=== PATIENT | male | born 1935 | race Caucasian/White ===

== ENCOUNTER 2019-03-06 05:46 | Day surgery (SDC) | payer MEDICARE, BC ==
[2019-03-06] MEDS ORDERED: Midazolam 1 MG/ML 2 ML SDV IV ONE ×6 (05:47→07:35)
[2019-03-06] MEDS ORDERED: fentaNYL 100 MCG/2 ML SDV IV ONE ×3 (05:47→07:13)
[2019-03-06] MEDS ORDERED: Sodium Chloride 0.9% 10 ML Syringe FLUSH PRN (06:00)
[2019-03-06] MEDS ORDERED: Dextrose 5%-0.45% NaCl 1,000 ML IV SCH (06:00)
[2019-03-06] MEDS ORDERED: fentaNYL 100 MCG/2 ML SDV ONE (06:16)
[2019-03-06] MEDS ORDERED: Midazolam 1 MG/ML 2 ML SDV ONE (06:16)
--- NOTE | 2019-03-06 12:55 | OR ---
DATE: 03/06/2019 PROCEDURE PERFORMED: Total colonoscopy, narrowband imaging, and multiple cold snare polypectomies. INSTRUMENT USED: PCF-H190DL Olympus video colonoscope. PREMEDICATIONS: Fentanyl 100 mcg intravenous, Versed 3 mg intravenous. Nasal O2 cannula. The procedure was done under pulse oximetry, BP recording, and toe puncher. INDICATION: The patient with previous colonic tubular adenoma. Surveillance colonoscopic examination is done for detection of any polypoid lesions and removal, endoscopic hemostasis therapy if needed. DESCRIPTION OF PROCEDURE: Initial rectal exam was unremarkable. Rigid anoscopy was normal. The colonoscope was passed with ease. Numerous scattered wide- mouth diverticula were noted at the distal left colon along with significant deformity. The scope was passed up to the ileocecal area. Photographs were taken of the normal-appearing cecum, identified by double-bulged ileocecal folds. No bleeding was noted from any of the visualized areas at the commencement of the examination. The bowel preparation was found to be adequate, [place] scale 2 in all the regions. No stricture. No vascular ectasia. No large isolated ulcerations seen. No evidence of diffuse inflammatory bowel disease in the form of friability, contact bleeding, or ulcerations. Probing the proximal sides of folds and flexures using adequate distention and clearing up the stool material, withdrawal of the scope was made. In the mid transverse colon, 2 benign-appearing diminutive polyps were noted, NBI views were obtained, cold snare polypectomies were done, the tissues were retrieved and sent for histopathology. Photographs were taken of the polyps. No bleeding was noted from any of the visualized areas at the completion of the examination. IMPRESSION: 1. Diverticulosis. 2. Diminutive benign polyps. The patient tolerated the procedure well. [facility] /[id number]
== END 2019-03-06 09:53 | disposition home or self-care (01) ==
LOC: DL.ENDO 05:46
PROVIDERS: ATTEND Internal Medicine Gastroenterology
DX: Z12.11 Encounter for screening for malignant neoplasm of colon (principal); D12.3 Benign neoplasm of transverse colon; K57.30 Diverticulosis of large intestine without perforation or abscess without bleeding; Z86.010 Personal history of colon polyps; E78.00 Pure hypercholesterolemia, unspecified; J45.909 Unspecified asthma, uncomplicated; K21.9 Gastro-esophageal reflux disease without esophagitis; Z88.5 Allergy status to narcotic agent; Z87.891 Personal history of nicotine dependence; Z98.890 Other specified postprocedural states; Z79.899 Other long term (current) drug therapy
CPT/HCPCS: 45385; J2250; J3010; J7042

== ENCOUNTER 2020-09-15 09:31 | Emergency (ER) | payer MEDICARE, BC ==
[2020-09-15] MEDS ORDERED: Sodium Chloride 0.9% 10 ML Syringe FLUSH PRN (09:33)
[2020-09-15] MEDS ORDERED: Sodium Chloride 0.9% 1,000 ML IV ONE (09:40)
--- NOTE | 2020-09-15 10:06 | CR ---
PROCEDURE INFORMATION: Exam: XR Chest, 1 View Exam date and time: 09/15/2020 9:53 AM Age: 84 years old Clinical indication: Other: Syncope TECHNIQUE: Imaging protocol: XR of the chest Views: 1 view. COMPARISON: No relevant prior studies available. FINDINGS: Lungs: There is mild patchy atelectasis or infiltrate at the left base. The lungs are otherwise clear. Pleural space: Unremarkable. No pleural effusion. No pneumothorax. Heart/Mediastinum: Unremarkable. No cardiomegaly. Bones/joints: Degenerative changes involve the spine and shoulders. IMPRESSION: Mild patchy left basilar atelectasis or infiltrate.
[2020-09-15 10:09] LABS: PTT,PARTIAL THROMBOPLSTIN TIME 21.3 SEC (22.0-34.0)
[2020-09-15 10:20] LABS: ANION GAP 14.3 mEq/L (7-13); CHLORIDE,CL 104 mmol/L (98-107); SODIUM,NA 141 mmol/L (136-145)
[2020-09-15] MEDS ORDERED: Iopamidol 755 Mg/ML 100 ML Bottle IVPUSH ONE (10:50)
--- NOTE | 2020-09-15 12:04 | CT ---
PROCEDURE INFORMATION: Exam: CT Chest With Contrast; Diagnostic Exam date and time: 09/15/2020 11:26 AM Age: 84 years old Clinical indication: Other: Syncope elevated d-dimer; Patient HX: R/O pe; Additional info: Syncope, elev. D-dimer 803 TECHNIQUE: Imaging protocol: Diagnostic computed tomography of the chest with intravenous contrast. Radiation optimization: All CT scans at this facility use at least one of these dose optimization techniques: automated exposure control; mA and/or kV adjustment per patient size (includes targeted exams where dose is matched to clinical indication); or iterative reconstruction. Contrast material: ISOVUE 370; Contrast volume: 69 ml; Contrast route: INTRAVENOUS (IV); COMPARISON: CT Chest wo Cont 08/13/2020 1:30 PM FINDINGS: Lungs: Previously noted linear density along the right mainstem bronchus is no longer evident. Mild dependent atelectasis and scattered scarring is present bilaterally. There is again a calcified granuloma in the right lower lobe. A 4 mm right upper lobe nodule appears stable (image 7:24). Pleural space: Unremarkable. No pneumothorax. No pleural effusion. Heart: Coronary artery calcifications are again present. No significant pericardial effusion. The RV/LV ratio is less than 1. Pulmonary arteries: No pulmonary embolus is identified. Aorta: The thoracic aorta is nonaneurysmal. Atherosclerotic vascular calcifications are again present. Lymph nodes: There is new enlargement of a subcarinal lymph node, measuring 1.4 cm short axis. In AP window lymph node is also newly enlarged, measuring 1.1 cm short axis. Subcentimeter short axis lymph nodes are present elsewhere in the mediastinum and bilateral danny. Liver: The liver contains multiple small cysts. Kidneys and ureters: The partially included kidney contains cysts. Bones/joints: Degenerative changes again involve the spine. Soft tissues: Unremarkable. IMPRESSION: 1. No pulmonary embolus identified. 2. Mild mediastinal lymphadenopathy, new as compared with 08/13/20, nonspecific. Correlate clinically and follow-up. 3. Stable 4 mm right upper lobe nodule. For patients at low risk (minimal or absent history of smoking and of other known risk factors), no routine follow-up is indicated. For patients at high risk (history of smoking or of other known risk factors), consider optional CT Chest at 12 months. (Reference: Lakia) COMMENTS: Consistent with the [employer]'s Incidental Findings Committee white paper (J Am Pj Radiol 2018): Any incidental renal lesion less than 1 cm or classified as too small to characterize, or any incidental cystic renal lesion characterized as simple-appearing, is likely benign. No follow-up imaging is recommended for these lesions per consensus recommendations based on imaging criteria. REFERENCES: Lakia Murray et al. Guidelines for Management of Incidental Pulmonary Nodules Detected on CT Images: From the [employer] Society 2017. Radiology. 2017;284(1):228-243.
[2020-09-15] MEDS ORDERED: Albuterol/Ipratropium 3.0-0.5 MG/3 ML Neb Soln NEB ONE (12:09)
--- NOTE | 2020-09-15 12:39 | EDM.PDOC ---
"Scribed by Rosa Angulo 09/15/20 0949 for Good Kolb MD ED HPI GENERAL MEDICAL PROBLEM - General Chief Complaint: Syncope Stated Complaint: CALLED IN Time Seen by Provider: 09/15/20 09:36 Source of Information: Reports: Patient, RN, RN Notes Reviewed History Limitations: Reports: No Limitations - History of Present Illness INITIAL COMMENTS - FREE TEXT/NARRATIVE: Pt presents to ER from [facility] by P[facility] with c/o near syncope. He states he did not have breakfast today because they have brunch after [facility] on Sundays. He was standing in [facility] and felt lightheaded, and had blurry vision so he sat down. He felt as if he might faint, so he sat down. Admits to shortness of breath. Admits to chronic sinus congestion and sore throat. Denies LOC, chest pain, SALAZAR, N/V/D, incontinence, difficulty with speech or swallowing, or motor weakness. Denies fever or cough. Onset: Today, Sudden Duration: Resolved Prior to Arrival Location: Reports: Generalized Quality: Reports: Other (Denies pain) Severity: Moderate Improves with: Reports: None Worsens with: Reports: None Associated Symptoms: Reports: No Other Symptoms - Related Data Allergies Allergy/AdvReac Type Severity Reaction Status Date / Time codeine Allergy Unknown Stomach Verified 09/15/20 10:46 Ache Home Meds: Home Meds Acetaminophen/Diphenhydramine [Acetaminophen Pm Gelcap] 1 each PO DAILY 11/03/13 [History] Fexofenadine [Maggy] 60 mg PO DAILY 11/03/13 [History] Omeprazole [Prilosec] 20 mg PO DAILY 11/03/13 [History] Tamsulosin [Tamsulosin 24 Hr] 0.4 mg PO BEDTIME 11/03/13 [History] Albuterol Sulfate [Albuterol Sulfate Hfa] 2 puff INH QID PRN 03/03/19 [History] Budesonide/Formoterol Fumarate [Symbicort 80-4.5 MCG] 2 puff INH BID 03/03/19 [History] Finasteride 5 mg PO DAILY 03/03/19 [History] Budesonide/Formoterol Fumarate [Symbicort 80-4.5 Mcg Inhaler] 2 puff INH BID 03/06/19 [History] Past Medical History HEENT History: Reports: Allergic Rhinitis, Cataract, Hard of Hearing, Sinusitis Cardiovascular History: Reports: None Respiratory History: Reports: Asthma, Sleep Apnea Other Respiratory History: Patient has sleep apnea, present while lying on his back Gastrointestinal History: Reports: Colon Polyp, GERD, Hemorrhoids, Other (See Below) Other Gastrointestinal History: Schatzki's ring Genitourinary History: Reports: None Musculoskeletal History: Reports: None Neurological History: Reports: None Psychiatric History: Reports: None Endocrine/Metabolic History: Reports: None Hematologic History: 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, Iron Deficiency Immunologic History: Reports: None Oncologic (Cancer) History: Reports: None Dermatologic History: Reports: None, Other (See Below) Other Dermatologic History: bruises easily - Infectious Disease History Infectious Disease History: Reports: Chicken Pox, Measles, Mumps - Past Surgical History Head Surgeries/Procedures: Reports: None HEENT Surgical History: Reports: Tonsillectomy Cardiovascular Surgical History: Reports: None Respiratory Surgical History: Reports: None GI Surgical History: Reports: Colonoscopy, EGD Male Surgical History: Reports: None Musculoskeletal Surgical History: Reports: Arthroscopic Knee, Knee Replacement Social & Family History - Family History Family Medical History: No Pertinent Family History - Caffeine Use Caffeine Use: Reports: Coffee Other Caffeine Use: 6 cups daily - Living Situation & Occupation Occupation: Retired ED ROS GENERAL - Review of Systems Review Of Systems: Comprehensive ROS is negative, except as noted in HPI. - Physical Exam Exam: See Below Exam Limited By: No Limitations General Appearance: Alert, WD/WN, No Apparent Distress Eye Exam: Bilateral Eye: EOMI, Normal Inspection, PERRL Ears: Normal External Exam, Hearing Loss (Chronic/stable) Nose: Normal Inspection, Normal Mucosa, No Blood Throat/Mouth: Normal Lips, Normal Teeth, Normal Gums, Normal Oropharynx, Normal Voice, No Airway Compromise, Other (Dry oral mucosa) Head Exam: Atraumatic, Normocephalic Neck: Normal Inspection, Supple, Non-Tender, Full Range of Motion Respiratory/Chest: No Respiratory Distress, Lungs Clear, Normal Breath Sounds, No Accessory Muscle Use, Chest Non-Tender Cardiovascular: Regular Rate, Rhythm, No Edema, Tachycardia GI/Abdominal: Normal Bowel Sounds, Soft, Non-Tender, No Organomegaly, No Distention, No Abnormal Bruit, No Mass Neuro Exam (Abbreviated): Alert, Oriented, CN II-XII Intact, Normal Cognition, No Motor/Sensory Deficits Back Exam: Normal Inspection Extremities: Normal Inspection, Normal Range of Motion, Non-Tender, No Pedal Edema, Normal Capillary Refill Psychiatric: Normal Affect, Normal Mood Skin Exam: Warm, Dry, Intact, Normal Color, No Rash #1 Interpretation EKG Date: 09/15/20 Time: 09:34 Rhythm: Other (sinus rhythm) Rate (Beats/Min): 78 [place]: Normal P-Wave: Present QRS: Other (left anterior fascicular block) ST-T: Normal QT: Normal Course - Vital Signs Last Recorded V/S: Last Vital Signs Temp 96.9 F 09/15/20 09:30 Pulse 90 09/15/20 12:09 Resp 17 09/15/20 09:30 BP 133/62 09/15/20 09:30 Pulse Ox 94 L 09/15/20 12:09 - Orders/Labs/Meds Orders: Active Orders 24 hr Category Date Time Status Blood Glucose Check, Bedside [RC] ONETIME Care 09/15/20 09:32 Active EKG 12 Lead [EKG Documentation Completion] [RC] STAT Care 09/15/20 09:33 Active Orthostatic Vital Signs [RC] ASDIRECTED Care 09/15/20 09:41 Active Peripheral IV Care [RC] . DIRECTED Care 09/15/20 09:34 Active RT Aerosol Therapy [RC] ASDIRECTED Care 09/15/20 12:09 Active CULTURE STREP A CONFIRMATION [RM] Stat Lab 09/15/20 09:48 Results STREP SCRN A RAPID W CULT CONF [RM] Stat Lab 09/15/20 09:48 Results UA RFX MAURIZIO AND CULT IF INDIC [URIN] Stat Lab 09/15/20 09:33 Ordered Sodium Chloride 0.9% [Saline Flush] Med 09/15/20 09:33 Active 10 ml FLUSH ASDIRECTED PRN Isolation [COMM] Routine Oth 09/15/20 09:41 Active Peripheral IV Insertion Adult [OM.PC] Stat Oth 09/15/20 09:33 Ordered Medication Orders Sodium Chloride (Saline Flush) 10 ml FLUSH ASDIRECTED PRN PRN Reason: Keep Vein Open Last Admin: 09/15/20 09:40 Dose: 10 ml Documented by: BE Labs: Laboratory Tests 09/15/20 09/15/20 09/15/20 Range/Units 09:40 09:45 09:45 WBC 1.7 L (5.0-10.0) 10^3/uL RBC 4.29 L (4.6-6.2) 10^6/uL Hgb 12.5 L (14.0-18.0) g/dL Hct 37.8 L (40.0-54.0) % MCV 88.1 (80-100) fL MCH 29.1 (27.0-34.0) pg MCHC 33.1 (33.0-35.0) g/dL Plt Count 116 L (150-450) 10^3/uL Neut % (Auto) 53.3 (42.2-75.2) % Lymph % (Auto) 39.6 (20.5-50.1) % Dickey % (Auto) 1.2 L (2-8) % Eos % (Auto) 4.1 H (1.0-3.0) % Baso % (Auto) 1.8 H (0.0-1.0) % Add Manual Diff Yes Neutrophils % (Manual) 41 L (42-75) % Band Neutrophils % 12 % Lymphocytes % (Manual) 38 (20-50) % Monocytes % (Manual) 2 (2-8) % Eosinophils % (Manual) 4 H (1-3) % Basophils % (Manual) 1 Metamyelocytes % 1 Myelocytes % 1 Toxic Granulation 3+ marked PT (9.0-12.0) SEC INR (0.9-1.2) APTT (22.0-34.0) SEC D-Dimer, Quantitative (0-400) ng/mL Sodium 141 (136-145) mmol/L Potassium 4.3 (3.5-5.1) mmol/L Chloride 104 (98-107) mmol/L Carbon Dioxide 27 (21-32) mmol/L Anion Gap 14.3 H (7-13) mEq/L BUN 22 H (7-18) mg/dL Creatinine 1.28 (0.70-1.30) mg/dL Est Cr Clr Drug Dosing TNP Estimated GFR (MDRD) 54 BUN/Creatinine Ratio 17.2 (No establ ref range) Glucose 141 H (74-99) mg/dL POC Glucose 137 H (83-110) mg/dl Lactic Acid (0.4-2.0) mmol/L Calcium 9.1 (8.5-10.1) mg/dL Magnesium 1.8 (1.8-2.4) mg/dL Total Bilirubin 0.3 (0.2-1.0) mg/dL AST 11 L (15-37) U/L ALT 17 (16-63) U/L Alkaline Phosphatase 37 L (46-116) U/L Troponin I < 0.017 (0.000-0.056) ng/mL B-Natriuretic Peptide 70 (0-100) pg/ml Total Protein 6.4 (6.4-8.2) g/dL Albumin 3.0 L (3.4-5.0) g/dL Globulin 3.4 Albumin/Globulin Ratio 0.88 TSH, Ultra Sensitive 3.70 (0.36-3.74) uIU/mL SARS-CoV-2 RNA (JEANMARIE) (NEGATIVE) 09/15/20 09/15/20 09/15/20 Range/Units 09:45 09:45 09:45 WBC (5.0-10.0) 10^3/uL RBC (4.6-6.2) 10^6/uL Hgb (14.0-18.0) g/dL Hct (40.0-54.0) % MCV (80-100) fL MCH (27.0-34.0) pg MCHC (33.0-35.0) g/dL Plt Count (150-450) 10^3/uL Neut % (Auto) (42.2-75.2) % Lymph % (Auto) (20.5-50.1) % Dickey % (Auto) (2-8) % Eos % (Auto) (1.0-3.0) % Baso % (Auto) (0.0-1.0) % Add Manual Diff Neutrophils % (Manual) (42-75) % Band Neutrophils % % Lymphocytes % (Manual) (20-50) % Monocytes % (Manual) (2-8) % Eosinophils % (Manual) (1-3) % Basophils % (Manual) Metamyelocytes % Myelocytes % Toxic Granulation PT 10.7 (9.0-12.0) SEC INR 1.1 (0.9-1.2) APTT 21.3 L (22.0-34.0) SEC D-Dimer, Quantitative 803 H (0-400) ng/mL Sodium (136-145) mmol/L Potassium (3.5-5.1) mmol/L Chloride (98-107) mmol/L Carbon Dioxide (21-32) mmol/L Anion Gap (7-13) mEq/L BUN (7-18) mg/dL Creatinine (0.70-1.30) mg/dL Est Cr Clr Drug Dosing Estimated GFR (MDRD) BUN/Creatinine Ratio (No establ ref range) Glucose (74-99) mg/dL POC Glucose (83-110) mg/dl Lactic Acid 1.1 (0.4-2.0) mmol/L Calcium (8.5-10.1) mg/dL Magnesium (1.8-2.4) mg/dL Total Bilirubin (0.2-1.0) mg/dL AST (15-37) U/L ALT (16-63) U/L Alkaline Phosphatase (46-116) U/L Troponin I (0.000-0.056) ng/mL B-Natriuretic Peptide (0-100) pg/ml Total Protein (6.4-8.2) g/dL Albumin (3.4-5.0) g/dL Globulin Albumin/Globulin Ratio TSH, Ultra Sensitive (0.36-3.74) uIU/mL SARS-CoV-2 RNA (JEANMARIE) (NEGATIVE) 09/15/20 Range/Units 09:48 WBC (5.0-10.0) 10^3/uL RBC (4.6-6.2) 10^6/uL Hgb (14.0-18.0) g/dL Hct (40.0-54.0) % MCV (80-100) fL MCH (27.0-34.0) pg MCHC (33.0-35.0) g/dL Plt Count (150-450) 10^3/uL Neut % (Auto) (42.2-75.2) % Lymph % (Auto) (20.5-50.1) % [place]key % (Auto) (2-8) % Eos % (Auto) (1.0-3.0) % Baso % (Auto) (0.0-1.0) % Add Manual Diff Neutrophils % (Manual) (42-75) % Band Neutrophils % % Lymphocytes % (Manual) (20-50) % Monocytes % (Manual) (2-8) % Eosinophils % (Manual) (1-3) % Basophils % (Manual) Metamyelocytes % Myelocytes % Toxic Granulation PT (9.0-12.0) SEC INR (0.9-1.2) APTT (22.0-34.0) SEC D-Dimer, Quantitative (0-400) ng/mL Sodium (136-145) mmol/L Potassium (3.5-5.1) mmol/L Chloride (98-107) mmol/L Carbon Dioxide (21-32) mmol/L Anion Gap (7-13) mEq/L BUN (7-18) mg/dL Creatinine (0.70-1.30) mg/dL Est Cr Clr Drug Dosing Estimated GFR (MDRD) BUN/Creatinine Ratio (No establ ref range) Glucose (74-99) mg/dL POC Glucose (83-110) mg/dl Lactic Acid (0.4-2.0) mmol/L Calcium (8.5-10.1) mg/dL Magnesium (1.8-2.4) mg/dL Total Bilirubin (0.2-1.0) mg/dL AST (15-37) U/L ALT (16-63) U/L Alkaline Phosphatase (46-116) U/L Troponin I (0.000-0.056) ng/mL B-Natriuretic Peptide (0-100) pg/ml Total Protein (6.4-8.2) g/dL Albumin (3.4-5.0) g/dL Globulin Albumin/Globulin Ratio TSH, Ultra Sensitive (0.36-3.74) uIU/mL SARS-CoV-2 RNA (JEANMARIE) Negative (NEGATIVE) Influenza A/B: negative Rapid Strep: negative Meds: Medications Generic Name Dose Route Start Last Admin Trade Name Freq PRN Reason Stop Dose Admin Sodium Chloride 10 ml 09/15/20 09:33 09/15/20 09:40 Saline Flush FLUSH 10 ml ASDIRECTED PRN Administration Keep Vein Open Discontinued Medications Generic Name Dose Route Start Last Admin Trade Name Freq PRN Reason Stop Dose Admin Albuterol/Ipratropium 3 ml 09/15/20 12:09 09/15/20 12:18 Duoneb 3.0-0.5 Mg/3 Ml NEB 09/15/20 12:10 3 ml ONETIME ONE Administration Sodium Chloride 1,000 mls @ 999 mls/hr 09/15/20 09:40 09/15/20 09:40 Normal Saline IV 09/15/20 10:40 999 mls/hr .BOLUS ONE Administration Iopamidol 100 ml 09/15/20 10:50 09/15/20 11:41 Isovue-370 (76%) IVPUSH 09/15/20 10:51 69 ml ONETIME ONE Administration - Radiology Interpretation Free Text/Narrative:: [facility] Final Radiology Report Call: [phone] assistance Online chat: [email or web address] Name: MARY KWAN Age: 84Years M Date: 09/15/2020 SSN: -- : [id number] Study: CR CHEST 1V FRONTAL Requesting Physician: GOOD KOLB Images: 1 Addl Studies: Provided Clinical History: syncope Contrast: Contrast Medium: Contrast Amount: Contrast Method: CONFIDENTIALITY STATEMENT This report is intended only for use by the referring physician, and only in accordance with law. If you received this in error, call [phone]. Page 1 of 1 PROCEDURE INFORMATION: Exam: XR Chest, 1 View Exam date and time: 09/15/2020 9:53 AM Age: 84 years old Clinical indication: Other: Syncope TECHNIQUE: Imaging protocol: XR of the chest Views: 1 view. COMPARISON: No relevant prior studies available. FINDINGS: Lungs: There is mild patchy atelectasis or infiltrate at the left base. The lungs are otherwise clear. Pleural space: Unremarkable. No pleural effusion. No pneumothorax. Heart/Mediastinum: Unremarkable. No cardiomegaly. Bones/joints: Degenerative changes involve the spine and shoulders. IMPRESSION: Mild patchy left basilar atelectasis or infiltrate. Thank you for allowing us to participate in the care of your patient. Dictated and Authenticated by: Florentin Hansen MD 09/15/2020 10:06 AM Central Time ([place] & [place]) [facility] Final Radiology Report Call: [phone] assistance Online chat: [email or web address] Name: MARY KWAN Age: 84Years M Date: 09/15/2020 SSN: -- : [id number] Study: CT CHEST W CONT Requesting Physician: GOOD KOLB Images: 450 Addl Studies: Provided Clinical History: syncope, elev. D-dimer 803 Contrast: With Contrast Medium: Isovue 370 Contrast Amount: 69 mL Contrast Method: Intravenous (IV) Page 1 of 2 PROCEDURE INFORMATION: Exam: CT Chest With Contrast; Diagnostic Exam date and time: 09/15/2020 11:26 AM Age: 84 years old Clinical indication: Other: Syncope elevated d-dimer; Patient HX: R/O pe; Additional info: Syncope, elev. D-dimer 803 TECHNIQUE: Imaging protocol: Diagnostic computed tomography of the chest with intravenous contrast. Radiation optimization: All CT scans at this facility use at least one of these dose optimization techniques: automated exposure control; mA and/or kV adjustment per patient size (includes targeted exams where dose is matched to clinical indication); or iterative reconstruction. Contrast material: ISOVUE 370; Contrast volume: 69 ml; Contrast route: INTRAVENOUS (IV); COMPARISON: CT Chest wo Cont 08/13/2020 1:30 PM FINDINGS: Lungs: Previously noted linear density along the right mainstem bronchus is no longer evident. Mild dependent atelectasis and scattered scarring is present bilaterally. There is again a calcified granuloma in the right lower lobe. A 4 mm right upper lobe nodule appears stable (image 7:24). Pleural space: Unremarkable. No pneumothorax. No pleural effusion. Heart: Coronary artery calcifications are again present. No significant pericardial effusion. The RV/LV ratio is less than 1. Pulmonary arteries: No pulmonary embolus is identified. Aorta: The thoracic aorta is nonaneurysmal. Atherosclerotic vascular calcifications are again present. Lymph nodes: There is new enlargement of a subcarinal lymph node, measuring 1.4 cm short axis. In AP window lymph node is also newly enlarged, measuring 1.1 cm short axis. Subcentimeter short axis lymph nodes are present elsewhere in the mediastinum and bilateral danny. MARY KWAN | Final Radiology Report CONFIDENTIALITY STATEMENT This report is intended only for use by the referring physician, and only in accordance with law. If you received this in error, call [phone]. Page 2 of 2 Liver: The liver contains multiple small cysts. Kidneys and ureters: The partially included kidney contains cysts. Bones/joints: Degenerative changes again involve the spine. Soft tissues: Unremarkable. IMPRESSION: 1. No pulmonary embolus identified. 2. Mild mediastinal lymphadenopathy, new as compared with 08/13/20, nonspecific. Correlate clinically and follow-up. 3. Stable 4 mm right upper lobe nodule. For patients at low risk (minimal or absent history of smoking and of other known risk factors), no routine follow-up is indicated. For patients at high risk (history of smoking or of other known risk factors), consider optional CT Chest at 12 months. (Reference: Lakia) COMMENTS: Consistent with the [employer]'s Incidental Findings Committee white paper (J Am Pj Radiol 2018): Any incidental renal lesion less than 1 cm or classified as too small to characterize, or any incidental cystic renal lesion characterized as simple- appearing, is likely benign. No follow-up imaging is recommended for these lesions per consensus recommendations based on imaging criteria. REFERENCES: Lakia Murray, et al. Guidelines for Management of Incidental Pulmonary Nodules Detected on CT Images: From the Fleischner Society 2017. Radiology. 2017;284(1):228-243. Thank you for allowing us to participate in the care of your patient. Dictated and Authenticated by: Florentin Hansen MD 09/15/2020 12:04 PM Central Time ([place] & [place]) Departure - Departure Time of Disposition: 12:35 Disposition: DC/Tfer to Acute Hospital 02 Condition: Undetermined Clinical Impression: Hypoxia, Mediastinal lymphadenopathy, Right upper lobe pulmonary nodule Syncope Qualifiers: Syncope type: unspecified Qualified Code(s): R55 - Syncope and collapse Leukopenia Qualifiers: Leukopenia type: lymphocytopenia Qualified Code(s): D72.810 - Lymphocytopenia - Discharge Information *PRESCRIPTION DRUG MONITORING PROGRAM REVIEWED*: Not Applicable *COPY OF PRESCRIPTION DRUG MONITORING REPORT IN PATIENT ABELINO: Not Applicable Forms: ED Department Discharge, Interfacility Transfer EMTALA Sepsis Event Note (ED) - Focused Exam Vital Signs: Vital Signs Temp Pulse Resp BP Pulse Ox Pulse Ox 09/15/20 12:09 90 94 L 09/15/20 09:30 96.9 F 75 17 133/62 96 - My Orders Last 24 Hours: My Active Orders 09/15/20 09:32 Blood Glucose Check, Bedside [RC] ONETIME 09/15/20 09:33 EKG 12 Lead [EKG Documentation Completion] [RC] STAT UA RFX MAURIZIO AND CULT IF INDIC [URIN] Stat Sodium Chloride 0.9% [Saline Flush] 10 ml FLUSH ASDIRECTED PRN Peripheral IV Insertion Adult [OM.PC] Stat 09/15/20 09:34 Peripheral IV Care [RC] . DIRECTED 09/15/20 09:41 Orthostatic Vital Signs [RC] ASDIRECTED Isolation [COMM] Routine 09/15/20 09:48 CULTURE STREP A CONFIRMATION [RM] Stat STREP SCRN A RAPID W CULT CONF [RM] Stat 09/15/20 12:09 RT Aerosol Therapy [RC] ASDIRECTED - Assessment/Plan Last 24 Hours: My Active Orders 09/15/20 09:32 Blood Glucose Check, Bedside [RC] ONETIME 09/15/20 09:33 EKG 12 Lead [EKG Documentation Completion] [RC] STAT UA RFX MAURIZIO AND CULT IF INDIC [URIN] Stat Sodium Chloride 0.9% [Saline Flush] 10 ml FLUSH ASDIRECTED PRN Peripheral IV Insertion Adult [OM.PC] Stat 09/15/20 09:34 Peripheral IV Care [RC] . DIRECTED 09/15/20 09:41 Orthostatic Vital Signs [RC] ASDIRECTED Isolation [COMM] Routine 09/15/20 09:48 CULTURE STREP A CONFIRMATION [RM] Stat STREP SCRN A RAPID W CULT CONF [RM] Stat 09/15/20 12:09 RT Aerosol Therapy [RC] ASDIRECTED I have read and agree with the documentation that has been completed regarding this visit. By signing this record, I attest that the documentation was completed in my physical presence and is an accurate record of the encounter."
== END 2020-09-15 14:20 ==
LOC: DL.ED 09:31
DX: R55 Syncope and collapse (principal); D72.810 Lymphocytopenia; R09.02 Hypoxemia; R91.1 Solitary pulmonary nodule; Z20.822 Contact with and (suspected) exposure to COVID-19; Z88.5 Allergy status to narcotic agent; J45.909 Unspecified asthma, uncomplicated; K21.9 Gastro-esophageal reflux disease without esophagitis; Z79.899 Other long term (current) drug therapy; R06.02 Shortness of breath; Z20.828 Contact with and (suspected) exposure to other viral communicable diseases
CPT/HCPCS: 36415; 71045; 71260; 80053; 82962; 83605; 83735; 83880; 84443; 84484; 85025; 85379; 85610; 85730; 87081; 87430; 87804; 93005; 93010; 94640; 99284; 99285; J7030; Q9967; U0002; J7620-GY

== ENCOUNTER 2021-03-04 17:07 | Emergency (ER) | payer MEDICARE, BC ==
--- NOTE | 2021-03-04 18:11 | EDM.PDOC ---
ED HPI GENERAL MEDICAL PROBLEM - General Chief Complaint: General Stated Complaint: CONGESTION,HEADACHE Time Seen by Provider: 03/04/21 17:50 Source of Information: Reports: Patient, Family () History Limitations: Reports: No Limitations - History of Present Illness INITIAL COMMENTS - FREE TEXT/NARRATIVE: Mary is an 84 y/o male with a history of COPD and chronic rhinosinusitis who presents to the ED via personal vehicle with for complaints of productive cough, shortness of breath, and chest congestion. The patient underwent sinus surgery via Dr. Blanchard, ENT three weeks ago; he was on cephalexin 10 days before and after his procedure. The patient reports he has felt general malaise and chest congestion since his post-operative appointment 8 days ago. He denies fever, shaking chills, chest pain, palpitations, dyspepsia, nausea, vomiting, or abdominal pain. The patient takes Budesonide and Performist via nebulizer daily. He has required use of his rescue albuterol inhaler TID, which is new for him. - Related Data Allergies Allergy/AdvReac Type Severity Reaction Status Date / Time codeine Allergy Unknown Stomach Verified 03/04/21 17:26 Ache Home Meds: Home Meds Acetaminophen/Diphenhydramine [Acetaminophen Pm Gelcap] 1 each PO DAILY 11/03/13 [History] Fexofenadine [Maggy] 60 mg PO DAILY 11/03/13 [History] Omeprazole [Prilosec] 20 mg PO DAILY 11/03/13 [History] Tamsulosin [Tamsulosin 24 Hr] 0.4 mg PO BEDTIME 11/03/13 [History] Albuterol Sulfate [Albuterol Sulfate Hfa] 2 puff INH QID PRN 03/03/19 [History] Budesonide/Formoterol Fumarate [Symbicort 80-4.5 MCG] 2 puff INH BID 03/03/19 [History] Finasteride 5 mg PO DAILY 03/03/19 [History] Budesonide/Formoterol Fumarate [Symbicort 80-4.5 Mcg Inhaler] 2 puff INH BID 03/06/19 [History] Past Medical History HEENT History: Reports: Allergic Rhinitis, Cataract, Hard of Hearing, Sinusitis Cardiovascular History: Reports: None Respiratory History: Reports: Asthma, Sleep Apnea Other Respiratory History: Patient has sleep apnea, present while lying on his back Gastrointestinal History: Reports: Colon Polyp, GERD, Hemorrhoids, Other (See Below) Other Gastrointestinal History: Schatzki's ring Genitourinary History: Reports: None Musculoskeletal History: Reports: None Neurological History: Reports: None Psychiatric History: Reports: None Endocrine/Metabolic History: Reports: None Hematologic History: 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, Iron Deficiency Immunologic History: Reports: None Oncologic (Cancer) History: Reports: None Dermatologic History: Reports: None, Other (See Below) Other Dermatologic History: bruises easily - Infectious Disease History Infectious Disease History: Reports: Chicken Pox, Measles, Mumps - Past Surgical History Head Surgeries/Procedures: Reports: None HEENT Surgical History: Reports: Tonsillectomy Cardiovascular Surgical History: Reports: None Respiratory Surgical History: Reports: None GI Surgical History: Reports: Colonoscopy, EGD Male Surgical History: Reports: None Musculoskeletal Surgical History: Reports: Arthroscopic Knee, Knee Replacement Social & Family History - Family History Family Medical History: No Pertinent Family History - Tobacco Use Tobacco Use Status *Q: Never Tobacco User - Caffeine Use Caffeine Use: Reports: Coffee Other Caffeine Use: 6 cups daily - Recreational Drug Use Recreational Drug Use: No ED ROS GENERAL - Review of Systems Review Of Systems: Comprehensive ROS is negative, except as noted in HPI. ED EXAM, GENERAL - Physical Exam Exam: See Below Exam Limited By: No Limitations General Appearance: Alert, No Apparent Distress Eye Exam: Bilateral Eye: EOMI, Normal Inspection, PERRL (3mm) Ears: Normal External Exam, Normal Canal, Hearing Grossly Normal, Normal TMs Ear Exam: Bilateral Ear: Auricle Normal, Canal Normal, TM normal Nose: Normal Inspection, Nasal Swelling, Clear Rhinorrhea. No: Nasal Tenderness, Nasal Deformity Throat/Mouth: Normal Voice, No Airway Compromise. No: Normal Lips (Dry cracked), Normal Oropharynx (Dry mucous membranes) Head: Atraumatic, Normocephalic Neck: Normal Inspection, Supple, Non-Tender, Full Range of Motion. No: Lymphadenopathy (L), Lymphadenopathy (R) Respiratory/Chest: No Respiratory Distress, No Accessory Muscle Use, Chest Non- Tender, Decreased Breath Sounds, Wheezing (Expiratory to bilateral anterior upper lobes). No: Normal Breath Sounds, Crackles, Rales, Rhonchi, Stridor Cardiovascular: Normal Peripheral Pulses, Regular Rate, Rhythm, No Edema, No Gallop, No JVD, No Murmur, No Rub Peripheral Pulses: 2+: Radial (L), Radial (R) GI/Abdominal: Normal Bowel Sounds, Soft, Non-Tender, No Distention, No Abnormal Bruit, No Mass, Pelvis Stable Back Exam: Normal Inspection, Full Range of Motion Extremities: Normal Inspection, Normal Range of Motion, Non-Tender, Normal Capillary Refill, No Pedal Edema Neurological: Alert, Oriented, CN II-XII Intact, Normal Cognition, Normal Gait, Normal Reflexes, No Motor/Sensory Deficits Psychiatric: Normal Affect, Normal Mood Skin Exam: Warm, Dry, Intact, Normal Color, No Rash. No: Ecchymosis, Jaundice, Mottled #1 Interpretation EKG Date: 03/04/21 Time: 17:57 Rhythm: NSR Rate (Beats/Min): 88 [place]: LAD-Left Elberta Deviation P-Wave: Present QRS: Normal ST-T: Normal QT: Normal [place]/PQ Interval: 0.153 Comparison: No Change EKG Interpretation Comments: NSR; No evidence of acute myocardial ischemia Course - Vital Signs Last Recorded V/S: Last Vital Signs Temp 99.5 F 03/04/21 17:27 Pulse 96 03/04/21 17:27 Resp 16 03/04/21 17:27 BP 130/58 L 03/04/21 17:27 Pulse Ox 94 L 03/04/21 17:27 - Orders/Labs/Meds Labs: Laboratory Tests 03/04/21 03/04/21 03/04/21 Range/Units 17:58 18:18 18:18 WBC 6.5 (5.0-10.0) 10^3/uL RBC 3.79 L (4.6-6.2) 10^6/uL Hgb 10.9 L D (14.0-18.0) g/dL Hct 34.0 L (40.0-54.0) % MCV 89.7 (80-100) fL MCH 28.8 (27.0-34.0) pg MCHC 32.1 L (33.0-35.0) g/dL Plt Count 166 (150-450) 10^3/uL Neut % (Auto) 62.2 (42.2-75.2) % Lymph % (Auto) 11.5 L (20.5-50.1) % [facility] % (Auto) 15.1 H (2-8) % Eos % (Auto) 10.6 H (1.0-3.0) % Baso % (Auto) 0.6 (0.0-1.0) % Sodium 142 (136-145) mmol/L Potassium 4.4 (3.5-5.1) mmol/L Chloride 106 (98-107) mmol/L Carbon Dioxide 27 (21-32) mmol/L Anion Gap 13.4 H (7-13) mEq/L BUN 23 H (7-18) mg/dL Creatinine 1.64 H (0.70-1.30) mg/dL Est Cr Clr Drug Dosing 31.91 mL/min Estimated GFR (MDRD) 40 BUN/Creatinine Ratio 14.0 (No establ ref range) Glucose 112 H (70-99) mg/dL Calcium 8.4 L (8.5-10.1) mg/dL Total Bilirubin 0.3 (0.2-1.0) mg/dL AST 14 L (15-37) U/L ALT 30 (16-63) U/L Alkaline Phosphatase 71 (46-116) U/L Troponin I High Sens 8 (<=76) pg/mL B-Natriuretic Peptide (0-100) pg/ml Total Protein 6.4 (6.4-8.2) g/dL Albumin 2.8 L (3.4-5.0) g/dL Globulin 3.6 Albumin/Globulin Ratio 0.78 SARS CoV-2 RNA Rapid JEANMARIE Negative (NEGATIVE) 03/04/21 Range/Units 18:18 WBC (5.0-10.0) 10^3/uL RBC (4.6-6.2) 10^6/uL Hgb (14.0-18.0) g/dL Hct (40.0-54.0) % MCV (80-100) fL MCH (27.0-34.0) pg MCHC (33.0-35.0) g/dL Plt Count (150-450) 10^3/uL Neut % (Auto) (42.2-75.2) % Lymph % (Auto) (20.5-50.1) % [facility] % (Auto) (2-8) % Eos % (Auto) (1.0-3.0) % Baso % (Auto) (0.0-1.0) % Sodium (136-145) mmol/L Potassium (3.5-5.1) mmol/L Chloride (98-107) mmol/L Carbon Dioxide (21-32) mmol/L Anion Gap (7-13) mEq/L BUN (7-18) mg/dL Creatinine (0.70-1.30) mg/dL Est Cr Clr Drug Dosing mL/min Estimated GFR (MDRD) BUN/Creatinine Ratio (No establ ref range) Glucose (70-99) mg/dL Calcium (8.5-10.1) mg/dL Total Bilirubin (0.2-1.0) mg/dL AST (15-37) U/L ALT (16-63) U/L Alkaline Phosphatase (46-116) U/L Troponin I High Sens (<=76) pg/mL B-Natriuretic Peptide 171 H (0-100) pg/ml Total Protein (6.4-8.2) g/dL Albumin (3.4-5.0) g/dL Globulin Albumin/Globulin Ratio SARS CoV-2 RNA Rapid JEANMARIE (NEGATIVE) Meds: Medications Discontinued Medications Generic Name Dose Route Start Last Admin Trade Name Freq PRN Reason Stop Dose Admin Albuterol/Ipratropium 3 ml 03/04/21 18:42 03/04/21 18:57 Albuterol/Ipratropium 3.0-0.5 Mg/3 Ml Neb Soln NEB 03/04/21 18:43 3 ml ONETIME ONE Administration Azithromycin 500 mg 03/04/21 19:04 03/04/21 19:31 Azithromycin 250 Mg Tab PO 03/04/21 19:05 500 mg ONETIME ONE Administration Methylprednisolone Sodium Succinate 125 mg 03/04/21 18:42 03/04/21 18:57 Methylprednisolone Sodium Succinate 125 Mg/2 Ml Sdv IVPUSH 03/04/21 18:43 125 mg ONETIME ONE Administration - Radiology Interpretation Free Text/Narrative:: [facility] Final Radiology Report Call: [phone] assistance Online chat: [email or web address] Name: MARY KWAN Age: 85Years M Date: 03/04/2021 SSN: -- : [id number] Study: CR CHEST 2V Requesting Physician: Fabiola Nino Images: 2 Addl Studies: Provided Clinical History: Wheezing; SOB; Rales right mid lobe Contrast: Contrast Medium: Contrast Amount: Contrast Method: Page 1 of 2 PROCEDURE INFORMATION: Exam: XR Chest Exam date and time: 03/04/2021 6:05 PM Age: 85 years old Clinical indication: Shortness of breath and wheezing; Additional info: Wheezing; SOB; Rales right mid lobe TECHNIQUE: Imaging protocol: XR of the chest. Views: 2 views. COMPARISON: 1. CT Chest w Cont 09/15/2020 11:26 AM 2. CR Chest 1V Frontal 09/15/2020 9:53 AM 3. CR Chest 1V Frontal 11/03/2016 1:36 PM FINDINGS: Lungs: Well inflated lungs with flattened diaphragmatic contours and increased retrosternal airspace consistent with COPD. No segmental or lobar infiltrates. Suggestion of peribronchial cuffing in the central hilar regions, findings consistent with reactive airway disease and/or bronchitis. Pleural spaces: Unremarkable. No pleural effusion. No pneumothorax. Heart/Mediastinum: Unremarkable. No cardiomegaly. Bones/joints: Osteoporosis. IMPRESSION: 1. COPD. 2. Suggestion of peribronchial cuffing in the central hilar regions, findings consistent with reactive airway disease and/or bronchitis. Thank you for allowing us to participate in the care of your patient. Dictated and Authenticated by: Ameya Awad MD 03/04/2021 6:37 PM Central Time ([place] & [place]) - Re-Assessments/Exams Free Text/Narrative Re-Assessment/Exam: 03/04/21 Solu-Medrol and DuoNeb administered. Patient verbalized improvement in work of breathing following medication administration. Findings of examination, lab work, and imaging reviewed with patient and . Will treat COPD exacerbation, acute bronchitis, with prednisone burst and azithromycin. Supportive cares for acute bronchitis reviewed with patient and . Patient instructed to follow up with primary care provider regarding today's visit. Red flag signs and symptoms which would warrant reevaluation reviewed. Patient and verbalized understanding and agreement with the plan of care. Departure - Departure Time of Disposition: 19:07 Disposition: Home, Self-Care 01 Condition: Good Clinical Impression: Normocytic hypochromic anemia COPD (chronic obstructive pulmonary disease) Qualifiers: COPD type: unspecified COPD Qualified Code(s): J44.9 - Chronic obstructive pulmonary disease, unspecified Acute bronchitis Qualifiers: Bronchitis organism: unspecified organism Qualified Code(s): J20.9 - Acute bronchitis, unspecified - Discharge Information *PRESCRIPTION DRUG MONITORING PROGRAM REVIEWED*: Not Applicable *COPY OF PRESCRIPTION DRUG MONITORING REPORT IN PATIENT ABELINO: Not Applicable Instructions: Acute Bronchitis, Adult, [id number] Referrals: PCP,None [Primary Care Provider] - Forms: ED Department Discharge Additional Instructions: Rx: Prednisone Rx: Azithromycin 1.) Take all of your medication until gone. 2.) Continue on previously prescribed medication for COPD management. 3.) Follow up with your primary care provider regarding today's visit in 5-7 day, sooner should symptoms persist or worsen. Sepsis Event Note (ED) - Evaluation Sepsis Screening Result: No Definite Risk
--- NOTE | 2021-03-04 18:37 | CR ---
PROCEDURE INFORMATION: Exam: XR Chest Exam date and time: 03/04/2021 6:05 PM Age: 85 years old Clinical indication: Shortness of breath and wheezing; Additional info: Wheezing; SOB; Rales right mid lobe TECHNIQUE: Imaging protocol: XR of the chest. Views: 2 views. COMPARISON: 1. CT Chest w Cont 09/15/2020 11:26 AM 2. CR Chest 1V Frontal 09/15/2020 9:53 AM 3. CR Chest 1V Frontal 11/03/2016 1:36 PM FINDINGS: Lungs: Well inflated lungs with flattened diaphragmatic contours and increased retrosternal airspace consistent with COPD. No segmental or lobar infiltrates. Suggestion of peribronchial cuffing in the central hilar regions, findings consistent with reactive airway disease and/or bronchitis. Pleural spaces: Unremarkable. No pleural effusion. No pneumothorax. Heart/Mediastinum: Unremarkable. No cardiomegaly. Bones/joints: Osteoporosis. IMPRESSION: 1. COPD. 2. Suggestion of peribronchial cuffing in the central hilar regions, findings consistent with reactive airway disease and/or bronchitis.
[2021-03-04] MEDS ORDERED: Albuterol/Ipratropium 3.0-0.5 MG/3 ML Neb Soln NEB ONE (18:42)
[2021-03-04] MEDS ORDERED: methylPREDNISolone Sodium Succinate 125 MG/2 ML SDV IVPUSH ONE (18:42)
[2021-03-04 18:45] LABS: ANION GAP 13.4 mEq/L (7-13)
[2021-03-04] MEDS ORDERED: Azithromycin 250 MG Tab PO ONE (19:04)
== END 2021-03-04 19:35 | disposition home or self-care (01) ==
LOC: DL.ED 17:07
DX: J20.9 Acute bronchitis, unspecified (principal); J44.0 Chronic obstructive pulmonary disease with (acute) lower respiratory infection; J44.9 Chronic obstructive pulmonary disease, unspecified; D50.9 Iron deficiency anemia, unspecified; K21.9 Gastro-esophageal reflux disease without esophagitis; Z79.899 Other long term (current) drug therapy; Z88.5 Allergy status to narcotic agent; Z20.822 Contact with and (suspected) exposure to COVID-19
CPT/HCPCS: 36415; 71046; 80053; 83880; 84484; 85025; 93005; 96374; 99285; A9270; J2930; U0002; 93010; 99284; J7620-GY

== ENCOUNTER 2022-01-12 10:11 | Emergency (ER) | payer MEDICARE, BC ==
[2022-01-12] MEDS ORDERED: Sodium Chloride 0.9% 10 ML Syringe FLUSH PRN (12:26)
[2022-01-12] MEDS ORDERED: Albuterol/Ipratropium 3.0-0.5 MG/3 ML Neb Soln NEB ONE (12:31)
[2022-01-12] MEDS ORDERED: methylPREDNISolone Sodium Succinate 125 MG/2 ML SDV IVPUSH ONE (12:31)
[2022-01-12 13:09] LABS: ANION GAP 10.6 mEq/L (7-13)
== END 2022-01-12 18:30 | disposition home or self-care (01) ==
LOC: DL.ED 10:11
DX: J44.9 Chronic obstructive pulmonary disease, unspecified (principal); J32.4 Chronic pansinusitis; R09.02 Hypoxemia; K21.9 Gastro-esophageal reflux disease without esophagitis; Z88.5 Allergy status to narcotic agent; Z79.899 Other long term (current) drug therapy
CPT/HCPCS: 36415; 70486; 71250; 80053; 83605; 83880; 85025; 86140; 87040; 94640; 96374; 99285; J2930; J3490; J7620-GY

== ENCOUNTER 2022-01-21 21:04 | Emergency (ER) | payer MEDICARE, BC ==
[2022-01-21] MEDS ORDERED: Albuterol/Ipratropium 3.0-0.5 MG/3 ML Neb Soln NEB ONE ×2 (21:49→23:50)
[2022-01-21] MEDS: Albuterol/Ipratropium 3.0-0.5 MG/3 ML Neb Soln ONE ×2 (21:49→21:50)
[2022-01-21] MEDS ORDERED: Magnesium Sulfate/Water 2 GM in Premix Bag 1 BAG IV ONE ×2 (22:08→22:19)
[2022-01-21 22:29] LABS: ANION GAP 10.4 mEq/L (7-13); CHLORIDE,CL 105 mmol/L (98-107); SODIUM,NA 139 mmol/L (136-145)
[2022-01-21 22:51] LABS: CORONAVIRUS COVID-19 NAA NEGATIVE (NEGATIVE); RESPIRATORY SYNCYTIAL VIR NAA NEGATIVE (NEGATIVE)
[2022-01-21] MEDS ORDERED: Albuterol 0.083% 2.5 MG/3 ML Neb Soln NEB ONE (23:44)
== END 2022-01-22 00:09 | disposition home or self-care (01) ==
LOC: DL.ED 21:04
DX: J44.1 Chronic obstructive pulmonary disease with (acute) exacerbation (principal); Z20.822 Contact with and (suspected) exposure to COVID-19
CPT/HCPCS: 0241U; 36415; 71045; 80053; 82150; 83605; 83690; 83880; 84443; 84484; 85025; 86140; 93005; 94640; 96365; 99285-25; J3475; J7620-GY

== ENCOUNTER 2024-06-24 09:16 | Inpatient (IN) | payer MEDICARE, BC ==
[2024-06-24] MEDS: Albuterol/Ipratropium 3.0-0.5 MG/3 ML Neb Soln NEB ONE (09:47)
[2024-06-24] MEDS: Sodium Chloride 0.9% 1,000 ML IV ONE ×2 (09:47→10:10)
[2024-06-24] MEDS: Dexamethasone 4 MG/ML SDV IVPUSH ONE (09:47)
[2024-06-24] MEDS: Azithromycin 250 MG Tab PO ONE (09:52)
[2024-06-24] MEDS: cefTRIAXone 1 GM Vial IVPUSH ONE (09:52)
[2024-06-24 09:57] LABS: BASOPHILS PERCENT AUTO 0.1 % (0.0-1.0); EOSINOPHILS PERCENT AUTO 0.5 % (1.0-3.0); HEMATOCRIT 35.4 % (40.0-54.0); HEMOGLOBIN 11.3 g/dL (14.0-18.0); LYMPHOCYTES PERCENT AUTO 6.3 % (20.5-50.1); MEAN CORPUSCULAR HEMOGLOBIN 28.2 pg (27.0-34.0); MEAN CORPUSCULAR HGB CONC 31.9 g/dL (33.0-35.0); MEAN CORPUSCULAR VOLUME 88.3 fL (80-100); MONOCYTES PERCENT AUTO 10.3 % (2-8); NEUTROPHILS PERCENT AUTO 82.8 % (42.2-75.2); PLATELET COUNT,PLT 143 10^3/uL (150-450); RED BLOOD CELL COUNT 4.01 10^6/uL (4.6-6.2); WHITE BLOOD CELL COUNT,WBC 8.8 10^3/uL (5.0-10.0)
[2024-06-24 10:14] LABS: B-TYPE NATRIURETIC PEPTIDE,BNP 300 pg/ml (0-100)
[2024-06-24 10:19] LABS: ALANINE AMINOTRANSFERASE,ALT 25 U/L (16-63); ALBUMIN 2.9 g/dL (3.4-5.0); ALKALINE PHOSPHATASE 115 U/L (46-116); ANION GAP 12.8 mEq/L (7-13); ASPARTATE AMNIOTRANSFERASE,AST 24 U/L (15-37); BILIRUBIN TOTAL 0.8 mg/dL (0.2-1.0); BLOOD UREA NITROGEN,BUN 27 mg/dL (7-18); BUN/CREATININE RATIO 17.2 (No establ ref range); CALCIUM 8.6 mg/dL (8.5-10.1); CARBON DIOXIDE,CO2 26 mmol/L (21-32); CHLORIDE,CL 105 mmol/L (98-107); CREATININE 1.57 mg/dL (0.70-1.30); GLUCOSE RANDOM 138 mg/dL (70-99); MAGNESIUM 1.9 mg/dL (1.8-2.4); POTASSIUM,K 3.8 mmol/L (3.5-5.1); PROTEIN TOTAL,TP 6.4 g/dL (6.4-8.2); SODIUM,NA 140 mmol/L (136-145)
[2024-06-24 10:20] LABS: A/G RATIO 0.83; ESTIMATED GFR 43 mL/min (>=60); LACTIC ACID 1.1 mmol/L (0.4-2.0)
[2024-06-24 10:23] LABS: INR 1.1 (0.9-1.2); PROTHROMBIN TIME 11.6 SEC (9.0-12.0); PTT,PARTIAL THROMBOPLSTIN TIME 25.8 SEC (22.0-34.0)
[2024-06-24] MEDS: Iopamidol 755 Mg/ML 100 ML Bottle IVPUSH ONE (11:15)
[2024-06-24] MEDS: Diltiazem 125 MG in Sodium Chloride 0.9% 100 ML IV SCH (12:13)
[2024-06-24] MEDS: Enoxaparin 80 MG/0.8 ML Syringe SUBCUT ONE (12:15)
[2024-06-24] MEDS ORDERED: Ondansetron 4 MG/2 ML SDV IVPUSH PRN (13:52)
[2024-06-24] MEDS ORDERED: Ketorolac 30 MG/ML SDV IVPUSH PRN (13:52)
[2024-06-24] MEDS ORDERED: Acetaminophen 325 MG Tab PO PRN (13:52)
[2024-06-24] MEDS ORDERED: Polyethylene Glycol 3350 Powder 17 GM Packet PO PRN (13:52)
[2024-06-24] MEDS ORDERED: Docusate Sodium 100 MG Cap PO PRN (13:52)
[2024-06-24] MEDS ORDERED: Melatonin 3 MG Tab PO PRN (13:52)
[2024-06-24] MEDS ORDERED: Albuterol/Ipratropium 3.0-0.5 MG/3 ML Neb Soln NEB PRN (13:52)
[2024-06-24] MEDS ORDERED: cefTRIAXone 1 GM Vial IVPUSH SCH (14:30)
[2024-06-24] MEDS: Gabapentin 100 MG Cap PO SCH (15:12)
[2024-06-24] MEDS: Formoterol/Mometasone 100-5 MCG 8.8 GM Inhaler INH SCH (17:01)
[2024-06-24] MEDS: Diltiazem IR 30 MG Tab PO SCH (17:22)
[2024-06-24] MEDS ORDERED: Tamsulosin 0.4 MG Cap.ER PO SCH (21:00)
[2024-06-24] MEDS ORDERED: Non-Formulary Medication 1 Each (Budesonide/Formoterol Fumarate [Symbicort 80-4.5 Mcg Inha INH SCH (21:00)
[2024-06-24] MEDS: Enoxaparin 100 MG/1 ML Syringe SUBCUT ONE (23:56)
[2024-06-25] MEDS: Omeprazole 20 MG Cap.CR PO SCH (05:27)
[2024-06-25 05:59] LABS: BASOPHILS PERCENT AUTO 0.1 % (0.0-1.0); HEMATOCRIT 35.2 % (40.0-54.0); HEMOGLOBIN 10.9 g/dL (14.0-18.0); LYMPHOCYTES PERCENT AUTO 9.5 % (20.5-50.1); MEAN CORPUSCULAR VOLUME 90.5 fL (80-100); MONOCYTES PERCENT AUTO 6.5 % (2-8); NEUTROPHILS PERCENT AUTO 83.9 % (42.2-75.2); PLATELET COUNT,PLT 166 10^3/uL (150-450); RED BLOOD CELL COUNT 3.89 10^6/uL (4.6-6.2); WHITE BLOOD CELL COUNT,WBC 11.5 10^3/uL (5.0-10.0)
[2024-06-25 06:17] LABS: CALCIUM 8.7 mg/dL (8.5-10.1); CREATININE 1.46 mg/dL (0.70-1.30); EST CRCL DRUG DOSING (CG) 33.96 mL/min; MAGNESIUM 2.2 mg/dL (1.8-2.4)
[2024-06-25] MEDS ORDERED: Non-Formulary Medication 1 Each (Cetirizine [Zyrtec] 10 MG Tablet) PO SCH (09:00)
[2024-06-25] MEDS: Azithromycin 500 MG in Sodium Chloride 0.9% 250 ML IV SCH (09:10)
[2024-06-25] MEDS: cefTRIAXone 1 GM Vial IVPUSH SCH (09:12)
[2024-06-25] MEDS: Loratadine 10 MG Tab PO SCH (09:16)
[2024-06-25] MEDS: Aspirin 81 MG Tab.EC PO SCH (09:16)
[2024-06-25] MEDS: atorvaSTATin 20 MG Tab PO SCH (09:16)
[2024-06-25] MEDS: Apixaban 5 MG Tab PO SCH (09:16)
[2024-06-25] MEDS: Diltiazem 120 MG Cap.CD PO SCH (09:16)
[2024-06-25] MEDS: methylPREDNISolone Sodium Succinate 40 MG/1 ML SDV IVPUSH SCH (09:17)
[2024-06-25] MEDS: Finasteride 5 MG Tab PO SCH (09:17)
[2024-06-25] MEDS: Sodium Chloride 0.65% Nasal Spray 45 ML Bottle NAS PRN (10:13)
[2024-06-26 06:16] LABS: HEMATOCRIT 32.7 % (40.0-54.0); HEMOGLOBIN 10.2 g/dL (14.0-18.0); LYMPHOCYTES PERCENT AUTO 9.1 % (20.5-50.1); MEAN CORPUSCULAR HEMOGLOBIN 27.8 pg (27.0-34.0); MEAN CORPUSCULAR HGB CONC 31.2 g/dL (33.0-35.0); MEAN CORPUSCULAR VOLUME 89.1 fL (80-100); MONOCYTES PERCENT AUTO 6.9 % (2-8); PLATELET COUNT,PLT 173 10^3/uL (150-450); RED BLOOD CELL COUNT 3.67 10^6/uL (4.6-6.2); WHITE BLOOD CELL COUNT,WBC 10.9 10^3/uL (5.0-10.0)
[2024-06-26 06:31] LABS: ANION GAP 12.8 mEq/L (7-13); CALCIUM 8.8 mg/dL (8.5-10.1); CREATININE 1.41 mg/dL (0.70-1.30); EST CRCL DRUG DOSING (CG) 35.16 mL/min; POTASSIUM,K 4.8 mmol/L (3.5-5.1)
[2024-06-26] MEDS ORDERED: FLU (Fluarix Triv) TS24-25(6MOS UP)/PF 45 MCG/0.5 ML Syringe IM ONE (10:00)
[2024-06-26] MEDS: FLU (Fluad Triv) TS24-25 (65UP)/MF59C/PF 45 MCG/0.5 ML Syringe IM ONE (10:48)
== END 2024-06-26 11:00 | disposition home or self-care (01) | DRG 193 ==
LOC: DL.ED 09:16 → DL.MS 12:03
PROVIDERS: ADMIT Internal Medicine; ATTEND Student in an Organized Health Care Education/Training Program
DX: J18.9 Pneumonia, unspecified organism (principal); U07.1 COVID-19; J44.0 Chronic obstructive pulmonary disease with (acute) lower respiratory infection; J44.1 Chronic obstructive pulmonary disease with (acute) exacerbation; U09.9 Post COVID-19 condition, unspecified; Z88.5 Allergy status to narcotic agent; Z79.52 Long term (current) use of systemic steroids; Z79.899 Other long term (current) drug therapy; Z79.82 Long term (current) use of aspirin; H91.90 Unspecified hearing loss, unspecified ear; G47.30 Sleep apnea, unspecified; Z86.0100 Personal history of colon polyps, unspecified; K21.9 Gastro-esophageal reflux disease without esophagitis; Z87.19 Personal history of other diseases of the digestive system; N40.0 Benign prostatic hyperplasia without lower urinary tract symptoms; Z90.89 Acquired absence of other organs; Z96.659 Presence of unspecified artificial knee joint; Z98.890 Other specified postprocedural states; I48.91 Unspecified atrial fibrillation; J32.9 Chronic sinusitis, unspecified; N18.9 Chronic kidney disease, unspecified; D69.6 Thrombocytopenia, unspecified; D63.1 Anemia in chronic kidney disease; R91.1 Solitary pulmonary nodule; Z87.891 Personal history of nicotine dependence; Z23 Encounter for immunization
CPT/HCPCS: 36415; 71045; 71275; 80053; 83605; 83735; 83880; 84145; 84484; 85025; 85379; 85610; 85730; 87040 ×2; 87070; 87205; 87804 ×2; 93005; 96374; 96375; 99285; A9270; J0696; J1100; J7030 ×2; Q9967; U0002; 80048; 90653; 93010; 93306; 94664; 99223; 99232; 99239; G0008; J0456; J1650; J2919; J3490; J7050; J7620-GY

== ENCOUNTER 2025-08-19 09:54 | Emergency (ER) | payer MEDICARE, BC ==
[2025-08-19 10:59] LABS: BASOPHILS PERCENT AUTO 0.6 % (0.0-1.0); EOSINOPHILS PERCENT AUTO 10.6 % (1.0-3.0); LYMPHOCYTES PERCENT AUTO 10.9 % (20.5-50.1); MONOCYTES PERCENT AUTO 10.6 % (2-8); NEUTROPHILS PERCENT AUTO 67.3 % (42.2-75.2); PLATELET COUNT,PLT 133 10^3/uL (150-450); RED BLOOD CELL COUNT 4.14 10^6/uL (4.6-6.2); WHITE BLOOD CELL COUNT,WBC 6.8 10^3/uL (5.0-10.0)
[2025-08-19 11:21] LABS: A/G RATIO 0.83; ALANINE AMINOTRANSFERASE,ALT 15.0 U/L (16-63); ASPARTATE AMNIOTRANSFERASE,AST 13.0 U/L (15-37); BILIRUBIN TOTAL 0.6 mg/dL (0.2-1.0); BLOOD UREA NITROGEN,BUN 25.0 mg/dL (7-18); CARBON DIOXIDE,CO2 28.0 mmol/L (21-32); CHLORIDE,CL 110.0 mmol/L (98-107); CREATININE 1.5 mg/dL (0.70-1.30); EST CRCL DRUG DOSING (CG) 32.44 mL/min; ESTIMATED GFR 45.0 mL/min (>=60); GLUCOSE RANDOM 112.0 mg/dL (70-99); POTASSIUM,K 4.2 mmol/L (3.5-5.1); PROTEIN TOTAL,TP 6.6 g/dL (6.4-8.2); SODIUM,NA 145.0 mmol/L (136-145)
== END 2025-08-19 11:55 | disposition home or self-care (01) ==
LOC: DL.ED 09:54
DX: R55 Syncope and collapse (principal); K21.9 Gastro-esophageal reflux disease without esophagitis; J44.89 Other specified chronic obstructive pulmonary disease; Z88.5 Allergy status to narcotic agent; Z79.899 Other long term (current) drug therapy; Z79.51 Long term (current) use of inhaled steroids; Z79.82 Long term (current) use of aspirin; Z79.01 Long term (current) use of anticoagulants; Z90.89 Acquired absence of other organs
CPT/HCPCS: 36415; 71045; 80053; 83735; 84484; 85025; 93005; 93010; 99284; 99285